=== PATIENT | male | born 1950 | race Hispanic/Latino ===

== ENCOUNTER 2018-07-07 12:58 | Emergency (ER) | payer MEDICARE ==
[~2018-07-07] VITALS: Ht 170.2 cm; Wt 79.4 kg
[2018-07-07] MEDS ORDERED: KETOROLAC TROMETHAMINE 60 MG/2 ML VIAL IM ONE (14:00)
[2018-07-07] MEDS ORDERED: CYCLOBENZAPRINE HCL 10 MG TAB PO ONE (14:00)
[2018-07-07] MEDS ORDERED: HYDROCODONE/APAP 5MG-325MG TAB PO ONE (14:00)
--- NOTE | 2018-07-07 15:00 | Diagnostic Imaging Report ---
Thoracic spine complete CPT code: 66477 Indication: Fall Technique: A.P. and swimmer's, and lateral views of thoracic spine obtained without comparison. Findings: Alignment maintained on AP view. No vertebral body compression. No compression or subluxation suggested on lateral views. Cervicothoracic junction is not well demonstrated due to overlapping soft tissue and osseous structures. Diffuse endplate osteophytic lipping with bridging osteophytes in the midthoracic spine. Visualized portions of the chest are unremarkable. IMPRESSION: Degenerative changes of the spine. No acute traumatic pathology. Signed by: Dr. Jennifer Tamayo MD on 07/07/2018 2:56 PM
--- NOTE | 2018-07-07 15:02 | Diagnostic Imaging Report ---
Lumbar Spine Radiographs: 5 views HISTORY: Pain. COMPARISON: None available. DISCUSSION: Some of the osseous structures are partially obscured by stool and bowel gas. There are five non-rib bearing lumbar vertebral bodies. The alignment of the spine is within normal limits. No displaced fracture or compression deformity is identified. Mild decrease in height of L2 and L5 vertebral body with associated endplate sclerosis are likely chronic. Disc Spaces: Mild to moderate multilevel degenerative changes of the lumbar spine, worse at L1-L2 and L5-S1. Facets: Facet arthrosis at L5-S1. IMPRESSION: No acute radiographic abnormality. Multilevel degenerative changes of the lumbar spine, worse at L5-S1. Mild decrease in height of L2 and L5 vertebral bodies appear chronic. Signed by: Dr. Mary Ellen Prado M.D. on 07/07/2018 2:59 PM
--- NOTE | 2018-07-07 15:05 | Diagnostic Imaging Report ---
Foot complete CPT code: 46355 Indication: Fall Technique: A.P., oblique and lateral views of the left foot obtained. Comparison: None Findings: The distal tibia and fibula appear intact. The talus is intact and normal in morphology. No fractures of the midfoot. Digits: There is lateral dislocation of the proximal phalanges of the second and third digits. The proximal phalanx of the second digit is dislocated by 5 mm. There is complete lateral dislocation of the proximal phalanx of the third digit relative to the metatarsal head. There are osseous fragments arising from the proximal second and third metatarsals consistent with acute fractures. Nondisplaced fractures of the metatarsal heads of the second and third digits cannot be excluded. Digits 1, 4, and 5 are intact. There is diffuse soft tissue swelling of the forefoot. No radiopaque foreign bodies in the soft tissues. IMPRESSION: Fractures of the second and third digits at the proximal phalanges with lateral subluxation of the proximal phalanges relative to the metatarsal heads, particularly the third digit. Nondisplaced fractures of the metatarsal heads of the second and third digits cannot be excluded. Signed by: Dr. Jennifer Tamayo MD on 07/07/2018 3:02 PM
--- NOTE | 2018-07-07 16:35 | Diagnostic Imaging Report ---
Exam: Left foot 2 views History: Post reduction Comparison: Left foot radiographs earlier 07/07/2018 Findings: Interval closed reduction of the previously described fracture-dislocation of the second and third metatarsophalangeal joints. The second metatarsophalangeal joint is in near-anatomic alignment with slight distraction of the medial intra-articular fracture fragment. The third proximal phalanx remains subluxed by approximately 4 mm lateral relative to the medial metatarsal head (previously approximately 8 mm subluxation). Intra-articular fracture is again noted. Impression: Interval closed reduction of the previously described second and third proximal phalangeal fracture-dislocations. Near-anatomic alignment of the second metatarsophalangeal joint. Persistent mild lateral subluxation (4 mm) of the third proximal interphalangeal joint. Comminuted, intra-articular fracture fragments as above. Signed by: Dr. Nemesio Marcos M.D. on 07/07/2018 4:31 PM
== END 2018-07-07 17:30 | disposition home or self-care (01) ==
LOC: EDBD 12:58 → ER 12:58
DX: S92.322A Displaced fracture of second metatarsal bone, left foot, initial encounter for closed fracture (principal); S92.332A Displaced fracture of third metatarsal bone, left foot, initial encounter for closed fracture; M54.6 Pain in thoracic spine; M54.5 Low back pain; W14.XXXA Fall from tree, initial encounter; Y92.007 Garden or yard of unspecified non-institutional (private) residence as the place of occurrence of the external cause; E78.5 Hyperlipidemia, unspecified
CPT/HCPCS: 72070; 72110; 99283